=== PATIENT | female | born 1935 | race Caucasian/White ===

== ENCOUNTER 2018-01-21 08:07 | Day surgery (SDC) | payer OTHER ==
[~2018-01-21] VITALS: Ht 152.4 cm; Wt 47.6 kg
[~2018-01-21 08:07] MED LIST: ATORVASTATIN CA20 MG PO; BUDESONIDE0.5 MG/2 M IH; BUMEX2 MG PO; CALTRATE 600 +1 EAC1 PO; CARDIZEM30 MG PO; COUMADIN4 MG PO; DUONEB 2.5-0.5 M3 ML AEROSOL; IMDUR30 MG PO; IRON325 M1 PO; K-DUR20 MEQ PO; LO-DOSE ASPIRIN81 M2 PO; OMEPRAZOLE40 M1 PO; PERCOCET 10/1 TABLET PO; PERCOCET 5/31 TABLET PO; ROXICODONE5 MG PO; VITAMIN D2000 UNIT PO; ZOLOFT50 MG PO
[2018-01-21] MEDS ORDERED: NEURONTIN100 MG PO (08:56)
[2018-01-21 09:02] LABS: INTER. NORMALIZED RATIO 1.1
[2018-01-21 09:04] LABS: PTT 26.5 SEC (25-37)
[2018-01-21 09:09] VITALS: BP 148/70
[2018-01-21 14:20] VITALS: BP 123/66
[2018-01-21 14:52] VITALS: BP 153/67
== END 2018-01-21 14:54 | disposition home or self-care (01) ==
LOC: SDC 08:07
PROVIDERS: Neurological Surgery
DX: S32.031A Stable burst fracture of third lumbar vertebra, initial encounter for closed fracture (principal); S22.081A Stable burst fracture of T11-T12 vertebra, initial encounter for closed fracture; K21.9 Gastro-esophageal reflux disease without esophagitis; I10 Essential (primary) hypertension; F41.8 Other specified anxiety disorders; M53.3 Sacrococcygeal disorders, not elsewhere classified; M47.817 Spondylosis without myelopathy or radiculopathy, lumbosacral region; M46.1 Sacroiliitis, not elsewhere classified; G89.29 Other chronic pain; J44.9 Chronic obstructive pulmonary disease, unspecified; Z79.82 Long term (current) use of aspirin; Z79.01 Long term (current) use of anticoagulants; Z87.891 Personal history of nicotine dependence; I25.2 Old myocardial infarction; X58.XXXA Exposure to other specified factors, initial encounter
CPT/HCPCS: 84132; 85610; 85730; J0690; J1100; J1170; J2405; J3010

== ENCOUNTER 2018-04-17 12:58 | Emergency (ER) | payer OTHER ==
[~2018-04-17] VITALS: Ht 149.9 cm; Wt 48.8 kg
[~2018-04-17 12:58] MED LIST changes: +NEURONTIN100 MG PO
[2018-04-17 13:32] LABS: BASOPHIL (%) 0.6 % (0-1); BASOPHIL COUNT 0.1 K/uL (0-0.1); EOSINOPHIL (%) 3.7 % (0-5); EOSINOPHIL COUNT 0.4 K/uL (0-0.3); HEMATOCRIT 32.1 % (36.0-46.0); HEMOGLOBIN 10.3 G/DL (11.9-15.5); IMMATURE GRANULOCYTE (%) 0.3 % (0.0-0.7); LYMPHOCYTE (%) 11.1 % (15-42); LYMPHOCYTE COUNT 1.3 K/uL (1.0-2.8); MCH 29.7 PG (29.0-34.0); MCHC 32.1 G/DL (30.0-36.0); MCV 92.5 FL (83-99); MONOCYTE (%) 7.2 % (3-12); MONOCYTE COUNT 0.8 K/uL (0-0.8); NEUTROPHIL (%) 77.1 % (45-76); PLATELET COUNT 310 K/uL (156-360); RBC DIS.WIDTH-CV 15.1 % (11.8-14.6); RBC DIS.WIDTH-SD 50.8 % (39-53); RED BLOOD COUNT 3.47 M/uL (3.80-5.20); WHITE BLOOD COUNT 11.7 K/uL (4.1-10.2)
[2018-04-17 13:40] LABS: ALBUMIN 3.8 g/dL (3.2-4.8); CHLORIDE 98 mEq/L (99-109); POTASSIUM 3.9 mEq/L (3.7-5.4); SODIUM 141 mEq/L (136-147)
[2018-04-17 13:42] LABS: GLUCOSE 104 mg/dL (70-99); TOTAL PROTEIN 6.8 g/dL (6.4-8.3)
[2018-04-17 13:44] LABS: TOTAL BILIRUBIN 0.3 mg/dL (0.0-1.0)
[2018-04-17 13:46] LABS: ALKALINE PHOSPHATASE 102 IU/L (3-129); GFR ESTIMATE (CALCULATED) 57 mL/min/
[2018-04-17 13:47] LABS: UREA NITROGEN (BUN) 18 mg/dL (9-23)
[2018-04-17 13:48] LABS: AST (GOT) 19 IU/L (2-34)
[2018-04-17 13:49] LABS: ALT (GPT) 11 IU/L (3-49); LIPASE 18 U/L (1.0-51.0)
[2018-04-17 14:00] LABS: INTER. NORMALIZED RATIO 4.5
[2018-04-17 14:16] LABS: APPEARANCE CLEAR ((CLEAR)); BILIRUBIN NEGATIVE; BLOOD SMALL; COLOR COLORLESS ((YELLOW)); GLUCOSE (STRIP) NEGATIVE; KETONES NEGATIVE; LEUKOCYTES NEGATIVE; NITRITE NEGATIVE; PROTEIN (STRIP) NEGATIVE; SPECIFIC GRAVITY 1.006 (1.000-1.030); UROBILINOGEN 0.2 MG/DL (0.2-1.0)
[2018-04-17 14:18] LABS: BACTERIA RARE /HPF; EPITHELIAL CELLS RARE /HPF; HYALINE CASTS 0-5 /LPF; MUCUS TRACE /LPF; RED BLOOD CELLS 0-5 /HPF (0-5); WHITE BLOOD CELLS 0-5 /HPF (0-5)
[2018-04-17] MEDS ORDERED: CITRATE OF MAG296 ML PO (15:34)
[2018-04-17] MEDS ORDERED: BENTYL20 MG PO (16:00)
[2018-04-17 16:51] VITALS: BP 153/82
== END 2018-04-17 17:00 | disposition home or self-care (01) ==
LOC: EME 12:58
PROVIDERS: Emergency Medicine
DX: K59.00 Constipation, unspecified (principal); R10.84 Generalized abdominal pain; J44.9 Chronic obstructive pulmonary disease, unspecified; K21.9 Gastro-esophageal reflux disease without esophagitis; I25.2 Old myocardial infarction; F32.9 Major depressive disorder, single episode, unspecified; Z87.891 Personal history of nicotine dependence; Z79.01 Long term (current) use of anticoagulants; Z79.82 Long term (current) use of aspirin
CPT/HCPCS: 71045; 74177; 80053; 81003; 83690; 85025; 85610; 93005; 99281; 99285; J2270; J7030

== ENCOUNTER 2018-04-24 11:19 | Inpatient (IN) | payer OTHER ==
[~2018-04-24] VITALS: Ht 149.9 cm; Wt 56.7 kg
[~2018-04-24 11:19] MED LIST changes: +BENTYL20 MG PO; +CITRATE OF MAG296 ML PO
[2018-04-24 12:23] LABS: BASOPHIL (%) 0.5 % (0-1); BASOPHIL COUNT 0.1 K/uL (0-0.1); EOSINOPHIL (%) 3.4 % (0-5); EOSINOPHIL COUNT 0.4 K/uL (0-0.3); HEMATOCRIT 36.4 % (36.0-46.0); HEMOGLOBIN 11.5 G/DL (11.9-15.5); IMMATURE GRANULOCYTE (%) 0.4 % (0.0-0.7); LYMPHOCYTE (%) 15.2 % (15-42); LYMPHOCYTE COUNT 1.8 K/uL (1.0-2.8); MCH 29.1 PG (29.0-34.0); MCHC 31.6 G/DL (30.0-36.0); MCV 92.2 FL (83-99); MONOCYTE (%) 8.1 % (3-12); NEUTROPHIL (%) 72.4 % (45-76); NEUTROPHIL COUNT 8.5 K/uL (1.8-6.4); PLATELET COUNT 310 K/uL (156-360); RBC DIS.WIDTH-CV 15.1 % (11.8-14.6); RBC DIS.WIDTH-SD 51.1 % (39-53); RED BLOOD COUNT 3.95 M/uL (3.80-5.20); WHITE BLOOD COUNT 11.8 K/uL (4.1-10.2)
[2018-04-24 12:32] LABS: CHLORIDE 98 mEq/L (99-109); POTASSIUM 3.5 mEq/L (3.7-5.4); SODIUM 142 mEq/L (136-147)
[2018-04-24 12:34] LABS: GLUCOSE 114 mg/dL (70-99)
[2018-04-24 12:35] LABS: TOTAL PROTEIN 7.2 g/dL (6.4-8.3)
[2018-04-24 12:36] LABS: TOTAL BILIRUBIN 0.3 mg/dL (0.0-1.0)
[2018-04-24 12:38] LABS: ALKALINE PHOSPHATASE 112 IU/L (3-129); CREATININE 1.1 mg/dL (0.6-1.3); GFR ESTIMATE (CALCULATED) 51 mL/min/
[2018-04-24 12:39] LABS: UREA NITROGEN (BUN) 21 mg/dL (9-23)
[2018-04-24 12:40] LABS: AST (GOT) 20 IU/L (2-34); DIRECT BILIRUBIN 0.2 mg/dL (0.0-0.3)
[2018-04-24 12:41] LABS: ALT (GPT) 13 IU/L (3-49); LIPASE 30 U/L (1.0-51.0)
[2018-04-24 12:42] LABS: TROP-I INTERPRETATION NEGATIVE; TROPONIN-I 0.01 ng/mL (0.0-0.30)
[2018-04-24 12:44] LABS: PTT 31.8 SEC (25-37)
[2018-04-24 12:50] LABS: INTER. NORMALIZED RATIO 1.3
[2018-04-24 14:38] LABS: APPEARANCE CLEAR ((CLEAR)); BILIRUBIN NEGATIVE; BLOOD NEGATIVE; COLOR COLORLESS ((YELLOW)); GLUCOSE (STRIP) NEGATIVE; KETONES NEGATIVE; LEUKOCYTES NEGATIVE; NITRITE NEGATIVE; PROTEIN (STRIP) NEGATIVE; SPECIFIC GRAVITY 1.013 (1.000-1.030); UCUL ADDED? NO; UROBILINOGEN 0.2 MG/DL (0.2-1.0)
[2018-04-24] MEDS ORDERED: SYMBICORT60 INHALAT IH (18:38)
[2018-04-24] MEDS ORDERED: ELIQUIS2.5 MG PO (18:38)
[2018-04-24] MEDS ORDERED: ZOFRAN4 MG PO (18:39)
[2018-04-24] MEDS ORDERED: DETROL1 MG PO (18:39)
[2018-04-24] MEDS ORDERED: MIRALAX17 GM PO (18:40)
[2018-04-24 19:46] LABS: HEMATOCRIT 31.5 % (36.0-46.0); HEMOGLOBIN 10.1 G/DL (11.9-15.5); MCH 29.7 PG (29.0-34.0); MCHC 32.1 G/DL (30.0-36.0); MCV 92.6 FL (83-99); PLATELET COUNT 283 K/uL (156-360); RBC DIS.WIDTH-CV 15.3 % (11.8-14.6); RBC DIS.WIDTH-SD 51.8 % (39-53); WHITE BLOOD COUNT 9.2 K/uL (4.1-10.2)
[2018-04-24 21:55] VITALS: BP 169/77
[2018-04-24] MEDS ORDERED: PERCOCET 10/1 TABLET PO (21:58)
[2018-04-25] VITALS (7 sets, daily range): BP systolic 91–169; BP diastolic 54–90
[2018-04-25 06:11] LABS: CHLORIDE 98 MEQ/L (99-109); CREATININE 0.8 MG/DL (0.6-1.3); GFR ESTIMATE (CALCULATED) > 59 mL/min/; GLUCOSE 96 mg/dL (70-99); POTASSIUM 3.7 MEQ/L (3.7-5.4); SODIUM 143 MEQ/L (136-147); UREA NITROGEN (BUN) 14 mg/dL (9-23)
[2018-04-26] VITALS (7 sets, daily range): BP systolic 105–141; BP diastolic 51–78
[2018-04-26 06:47] LABS: BASOPHIL (%) 0.8 % (0-1); BASOPHIL COUNT 0.1 K/uL (0-0.1); EOSINOPHIL (%) 5.8 % (0-5); EOSINOPHIL COUNT 0.5 K/uL (0-0.3); HEMATOCRIT 30.3 % (36.0-46.0); HEMOGLOBIN 9.6 G/DL (11.9-15.5); IMMATURE GRANULOCYTE (%) 0.4 % (0.0-0.7); LYMPHOCYTE (%) 20.9 % (15-42); LYMPHOCYTE COUNT 1.6 K/uL (1.0-2.8); MCHC 31.7 G/DL (30.0-36.0); MCV 94.7 FL (83-99); MONOCYTE (%) 9.1 % (3-12); MONOCYTE COUNT 0.7 K/uL (0-0.8); NEUTROPHIL COUNT 4.9 K/uL (1.8-6.4); PLATELET COUNT 260 K/uL (156-360); RBC DIS.WIDTH-SD 52.5 % (39-53); WHITE BLOOD COUNT 7.7 K/uL (4.1-10.2)
[2018-04-26 06:58] LABS: INTER. NORMALIZED RATIO 1.4
[2018-04-26 07:00] LABS: PTT 32.3 SEC (25-37)
[2018-04-26 07:13] LABS: CHLORIDE 99 MEQ/L (99-109); CREATININE 0.9 MG/DL (0.6-1.3); GFR ESTIMATE (CALCULATED) > 59 mL/min/; GLUCOSE 98 mg/dL (70-99); POTASSIUM 4.2 MEQ/L (3.7-5.4); SODIUM 141 MEQ/L (136-147); UREA NITROGEN (BUN) 15 mg/dL (9-23)
[2018-04-27 04:04] VITALS: BP 156/74
[2018-04-27 05:57] LABS: HEMATOCRIT 31.2 % (36.0-46.0); HEMOGLOBIN 9.6 G/DL (11.9-15.5); MCH 28.8 PG (29.0-34.0); MCHC 30.8 G/DL (30.0-36.0); MCV 93.7 FL (83-99); PLATELET COUNT 261 K/uL (156-360); RBC DIS.WIDTH-CV 14.8 % (11.8-14.6); RBC DIS.WIDTH-SD 50.4 % (39-53); RED BLOOD COUNT 3.33 M/uL (3.80-5.20); WHITE BLOOD COUNT 7.9 K/uL (4.1-10.2)
[2018-04-27 06:16] LABS: CHLORIDE 101 MEQ/L (99-109); CREATININE 0.8 MG/DL (0.6-1.3); GFR ESTIMATE (CALCULATED) > 59 mL/min/; GLUCOSE 90 mg/dL (70-99); POTASSIUM 4.3 MEQ/L (3.7-5.4); SODIUM 140 MEQ/L (136-147); UREA NITROGEN (BUN) 12 mg/dL (9-23)
[2018-04-27 07:36] VITALS: BP 128/60
[2018-04-27 15:32] VITALS: BP 118/54
[2018-04-27 20:27] VITALS: BP 163/68
[2018-04-28] VITALS (7 sets, daily range): BP systolic 117–153; BP diastolic 56–87
[2018-04-28 08:27] LABS: HEMATOCRIT 35.6 % (36.0-46.0); HEMOGLOBIN 10.8 G/DL (11.9-15.5); MCH 28.6 PG (29.0-34.0); MCHC 30.3 G/DL (30.0-36.0); MCV 94.4 FL (83-99); PLATELET COUNT 301 K/uL (156-360); RBC DIS.WIDTH-CV 15.1 % (11.8-14.6); RBC DIS.WIDTH-SD 52.2 % (39-53); RED BLOOD COUNT 3.77 M/uL (3.80-5.20); WHITE BLOOD COUNT 6.7 K/uL (4.1-10.2)
[2018-04-28 08:48] LABS: CHLORIDE 103 MEQ/L (99-109); CREATININE 0.8 MG/DL (0.6-1.3); GFR ESTIMATE (CALCULATED) > 59 mL/min/; GLUCOSE 98 mg/dL (70-99); POTASSIUM 4.6 MEQ/L (3.7-5.4); SODIUM 141 MEQ/L (136-147); UREA NITROGEN (BUN) 8 mg/dL (9-23)
[2018-04-29 03:58] VITALS: BP 128/58
[2018-04-29 07:45] VITALS: BP 129/68
[2018-04-29 08:26] LABS: HEMATOCRIT 33.9 % (36.0-46.0); HEMOGLOBIN 10.4 G/DL (11.9-15.5); MCH 28.7 PG (29.0-34.0); MCHC 30.7 G/DL (30.0-36.0); MCV 93.6 FL (83-99); PLATELET COUNT 278 K/uL (156-360); RBC DIS.WIDTH-CV 14.9 % (11.8-14.6); RBC DIS.WIDTH-SD 51.4 % (39-53); RED BLOOD COUNT 3.62 M/uL (3.80-5.20); WHITE BLOOD COUNT 8.2 K/uL (4.1-10.2)
[2018-04-29 08:47] LABS: CHLORIDE 104 MEQ/L (99-109); CREATININE 0.7 MG/DL (0.6-1.3); GFR ESTIMATE (CALCULATED) > 59 mL/min/; GLUCOSE 92 mg/dL (70-99); POTASSIUM 4.6 MEQ/L (3.7-5.4); SODIUM 141 MEQ/L (136-147); UREA NITROGEN (BUN) 7 mg/dL (9-23)
[2018-04-29 12:14] VITALS: BP 120/60
[2018-04-29 15:43] VITALS: BP 114/59
[2018-04-29 20:22] VITALS: BP 122/56
[2018-04-30 00:45] VITALS: BP 115/55
[2018-04-30 04:17] VITALS: BP 118/62
[2018-04-30 05:13] LABS: BASOPHIL (%) 0.7 % (0-1); BASOPHIL COUNT 0.1 K/uL (0-0.1); EOSINOPHIL (%) 7.2 % (0-5); EOSINOPHIL COUNT 0.5 K/uL (0-0.3); HEMOGLOBIN 9.2 G/DL (11.9-15.5); IMMATURE GRANULOCYTE (%) 0.3 % (0.0-0.7); LYMPHOCYTE (%) 18.6 % (15-42); LYMPHOCYTE COUNT 1.4 K/uL (1.0-2.8); MCH 28.7 PG (29.0-34.0); MCHC 30.7 G/DL (30.0-36.0); MCV 93.5 FL (83-99); MONOCYTE (%) 9.4 % (3-12); MONOCYTE COUNT 0.7 K/uL (0-0.8); NEUTROPHIL (%) 63.8 % (45-76); NEUTROPHIL COUNT 4.7 K/uL (1.8-6.4); PLATELET COUNT 255 K/uL (156-360); RBC DIS.WIDTH-CV 14.8 % (11.8-14.6); RBC DIS.WIDTH-SD 50.6 % (39-53); RED BLOOD COUNT 3.21 M/uL (3.80-5.20); WHITE BLOOD COUNT 7.4 K/uL (4.1-10.2)
[2018-04-30 06:01] LABS: CHLORIDE 103 MEQ/L (99-109); CREATININE 0.8 MG/DL (0.6-1.3); GFR ESTIMATE (CALCULATED) > 59 mL/min/; GLUCOSE 106 mg/dL (70-99); POTASSIUM 4.2 MEQ/L (3.7-5.4); SODIUM 140 MEQ/L (136-147); UREA NITROGEN (BUN) 8 mg/dL (9-23)
[2018-04-30 07:41] VITALS: BP 152/65
[2018-04-30 14:13] VITALS: BP 165/68
[2018-04-30 19:55] VITALS: BP 114/56
[2018-05-01 00:28] VITALS: BP 114/68
[2018-05-01 05:13] VITALS: BP 110/56
[2018-05-01 08:04] VITALS: BP 102/59
[2018-05-01 11:19] VITALS: BP 94/49
[2018-05-01 15:49] VITALS: BP 110/53
[2018-05-02 04:51] VITALS: BP 109/64
[2018-05-02 08:31] VITALS: BP 113/55
[2018-05-02 11:52] VITALS: BP 96/54
[2018-05-02 12:19] LABS: BASOPHIL (%) 0.4 % (0-1); EOSINOPHIL (%) 5.5 % (0-5); EOSINOPHIL COUNT 0.4 K/uL (0-0.3); HEMATOCRIT 31.7 % (36.0-46.0); HEMOGLOBIN 9.9 G/DL (11.9-15.5); IMMATURE GRANULOCYTE (%) 0.5 % (0.0-0.7); LYMPHOCYTE (%) 13.9 % (15-42); MCH 29.5 PG (29.0-34.0); MCHC 31.2 G/DL (30.0-36.0); MCV 94.3 FL (83-99); MONOCYTE (%) 10.4 % (3-12); MONOCYTE COUNT 0.8 K/uL (0-0.8); NEUTROPHIL (%) 69.3 % (45-76); PLATELET COUNT 274 K/uL (156-360); RBC DIS.WIDTH-CV 15.4 % (11.8-14.6); RBC DIS.WIDTH-SD 53.3 % (39-53); RED BLOOD COUNT 3.36 M/uL (3.80-5.20); WHITE BLOOD COUNT 7.3 K/uL (4.1-10.2)
[2018-05-02 12:47] LABS: CHLORIDE 101 MEQ/L (99-109); POTASSIUM 4.9 MEQ/L (3.7-5.4); SODIUM 137 MEQ/L (136-147)
[2018-05-02 12:53] LABS: CREATININE 0.7 MG/DL (0.6-1.3); GFR ESTIMATE (CALCULATED) > 59 mL/min/; GLUCOSE 96 mg/dL (70-99); UREA NITROGEN (BUN) 10 mg/dL (9-23)
[2018-05-02 12:57] LABS: TROP-I INTERPRETATION NEGATIVE; TROPONIN-I < 0.01 ng/mL (0.0-0.30)
[2018-05-02 16:01] VITALS: BP 113/59
[2018-05-02 16:07] VITALS: BP 121/58
[2018-05-02 23:42] VITALS: BP 94/67
[2018-05-03 03:42] VITALS: BP 101/50
[2018-05-03 08:32] VITALS: BP 115/55
[2018-05-03 11:30] VITALS: BP 119/56
[2018-05-03 16:07] VITALS: BP 110/55
[2018-05-03 19:39] VITALS: BP 122/76
[2018-05-03 23:40] VITALS: BP 98/55
[2018-05-04 08:06] VITALS: BP 102/72
[2018-05-04 08:49] LABS: HEMATOCRIT 34.8 % (36.0-46.0); HEMOGLOBIN 10.9 G/DL (11.9-15.5); MCH 28.8 PG (29.0-34.0); MCHC 31.3 G/DL (30.0-36.0); MCV 92.1 FL (83-99); PLATELET COUNT 294 K/uL (156-360); RBC DIS.WIDTH-CV 15.3 % (11.8-14.6); RED BLOOD COUNT 3.78 M/uL (3.80-5.20); WHITE BLOOD COUNT 8.5 K/uL (4.1-10.2)
[2018-05-04 09:02] LABS: CHLORIDE 94 mEq/L (99-109); SODIUM 140 mEq/L (136-147)
[2018-05-04 09:07] LABS: GLUCOSE 152 mg/dL (70-99); POTASSIUM 3.4 mEq/L (3.7-5.4)
[2018-05-04 09:08] LABS: CREATININE 0.9 mg/dL (0.6-1.3); GFR ESTIMATE (CALCULATED) > 59 mL/min/
[2018-05-04 09:09] LABS: UREA NITROGEN (BUN) 15 mg/dL (9-23)
[2018-05-04 11:35] VITALS: BP 104/63
[2018-05-04 15:26] VITALS: BP 91/51
[2018-05-04 19:28] VITALS: BP 107/58
[2018-05-04 23:14] VITALS: BP 102/54
[2018-05-05 05:05] VITALS: BP 106/51
[2018-05-05 06:47] LABS: CHLORIDE 98 MEQ/L (99-109); GFR ESTIMATE (CALCULATED) 57 mL/min/; GLUCOSE 114 mg/dL (70-99); SODIUM 140 MEQ/L (136-147); UREA NITROGEN (BUN) 16 mg/dL (9-23)
[2018-05-05 07:28] VITALS: BP 116/56
[2018-05-05 11:46] VITALS: BP 112/87
[2018-05-05 15:41] VITALS: BP 98/62
[2018-05-05 19:50] VITALS: BP 134/66
[2018-05-05 23:11] VITALS: BP 100/53
[2018-05-06] VITALS (7 sets, daily range): BP systolic 87–134; BP diastolic 53–70
[2018-05-07 04:17] VITALS: BP 130/60
[2018-05-07 07:48] VITALS: BP 120/69
[2018-05-07 11:33] VITALS: BP 124/65
[2018-05-07 15:46] VITALS: BP 108/58
[2018-05-07] MEDS ORDERED: GABAPENTIN400 MG PO (16:27)
[2018-05-07] MEDS ORDERED: FLEXERIL10 MG PO (16:28)
[2018-05-07] MEDS ORDERED: PERCOCET 10/1 TABLET PO (16:29)
== END 2018-05-07 18:55 | DRG 982 ==
LOC: EME 11:19 → ENRESERV 14:01 → EDOF 18:16 → 4SOUTH 18:16 → EME 18:16 → 4SOUTH 18:16 → ENRESERV 18:42 → CANRESERV 18:42 → ENRESERV 19:17 → 4SOUTH 21:23 → 3EAST 04-25 14:21 → 4SOUTH 04-25 14:21 → ENRESERV 04-30 12:13 → 3EAST 04-30 13:51
PROVIDERS: Emergency Medicine; Hospitalist; Internal Medicine; Nurse Practitioner Family; Physician Assistant; Physician Assistant Medical
PROC: 0PU43JZ Supplement Thoracic Vertebra with Synthetic Substitute, Percutaneous Approach (ICD-10-PCS; principal; 2018-04-30)
PROC: 0PS43ZZ Reposition Thoracic Vertebra, Percutaneous Approach (ICD-10-PCS; principal; 2018-04-30)
PROC: 0DJ08ZZ Inspection of Upper Intestinal Tract, Via Natural or Artificial Opening Endoscopic (ICD-10-PCS; 2018-05-07)
DX: K56.7 Ileus, unspecified (principal); M48.54XA Collapsed vertebra, not elsewhere classified, thoracic region, initial encounter for fracture; M48.56XA Collapsed vertebra, not elsewhere classified, lumbar region, initial encounter for fracture; F11.20 Opioid dependence, uncomplicated; J90 Pleural effusion, not elsewhere classified; J98.11 Atelectasis; K55.9 Vascular disorder of intestine, unspecified; F33.9 Major depressive disorder, recurrent, unspecified; K21.9 Gastro-esophageal reflux disease without esophagitis; I48.0 Paroxysmal atrial fibrillation; E11.9 Type 2 diabetes mellitus without complications; I25.10 Atherosclerotic heart disease of native coronary artery without angina pectoris; I70.0 Atherosclerosis of aorta; J44.9 Chronic obstructive pulmonary disease, unspecified; K44.9 Diaphragmatic hernia without obstruction or gangrene; D64.9 Anemia, unspecified; T40.2X5A Adverse effect of other opioids, initial encounter; M54.5 Low back pain; R63.0 Anorexia; K59.03 Drug induced constipation; Z87.891 Personal history of nicotine dependence; I25.2 Old myocardial infarction; Z79.01 Long term (current) use of anticoagulants; Z99.81 Dependence on supplemental oxygen; Z68.21 Body mass index [BMI] 21.0-21.9, adult; Z79.51 Long term (current) use of inhaled steroids; Z79.82 Long term (current) use of aspirin
CPT/HCPCS: 71046; 71250; 72128; 72131; 74018; 74177; 80048; 80076; 81003; 83605; 83690; 83880; 84145 90; 84484; 85025; 85027; 85610; 85730; 93005; 94640; 94799; 97530 GP; 99281; 99285; C1713; G0378; J0330; J0690; J1170; J2060; J2270; J2360; J2405; J3010; J7030